=== PATIENT | male | born 1980 | race Caucasian/White ===

== ENCOUNTER 2016-12-14 22:28 | Emergency (ER) | payer OTHER ==
[2016-12-14 23:42] LABS: BASOPHIL % 0.1 % (0-2); PLATELET COUNT 279 x10^3mcL (130-400); RED CELL DISTRIBUTION WIDTH 14.5 % (11.5-14.5)
[2016-12-14 23:54] LABS: CALCIUM 10.3 mg/dL (8.5-10.1); CARBON DIOXIDE 23.1 mmol/L (21-32); CHLORIDE SERUM 102 mmol/L (98-107); CREATININE SERUM 1.3 mg/dL (0.7-1.3); GFR1 > 60 mL/min; GLUCOSE SERUM 142 mg/dL (74-106); POTASSIUM SERUM 4.1 mmol/L (3.5-5.1); SODIUM SERUM 141 mmol/L (136-145)
[2016-12-15 00:04] LABS: ALBUMIN 4.4 g/dL (3.4-5.0); ALKALINE PHOSPHATASE 113 U/L (46-116); ALT/SGPT 32 U/L (16-63); AST/SGOT 17 U/L (15-37); BILIRUBIN TOTAL 0.6 mg/dL (0.20-1.00); LIPASE 111 IU/L (73-393)
[2016-12-15 00:05] LABS: TOTAL PROTEIN, SERUM 8.3 g/dL (6.4-8.2)
[2016-12-15 02:07] VITALS: BP 179/93
== END 2016-12-15 02:07 | disposition home or self-care (01) ==
LOC: ED 22:28
PROVIDERS: Emergency Medicine
DX: R10.84 Generalized abdominal pain (principal); K44.9 Diaphragmatic hernia without obstruction or gangrene; K74.60 Unspecified cirrhosis of liver
CPT/HCPCS: J1170; J2405; J2765; J7030

== ENCOUNTER 2019-03-28 18:30 | Emergency (ER) | payer OTHER ==
[~2019-03-28] VITALS: Ht 177.8 cm; Wt 87.1 kg
[2019-03-28 18:50] VITALS: Ht 177.8 cm; Wt 87.1 kg
[2019-03-28 19:55] VITALS: BP 132/93
== END 2019-03-28 19:55 | disposition home or self-care (01) ==
LOC: ED 18:30
DX: K08.89 Other specified disorders of teeth and supporting structures (principal); F17.210 Nicotine dependence, cigarettes, uncomplicated; I10 Essential (primary) hypertension; Z71.6 Tobacco abuse counseling
CPT/HCPCS: 99406

== ENCOUNTER 2019-04-11 20:36 | Emergency (ER) | payer OTHER ==
[~2019-04-11] VITALS: Ht 177.8 cm; Wt 86.6 kg
[2019-04-11 21:20] VITALS: BP 120/93; Ht 177.8 cm; Wt 86.6 kg
== END 2019-04-11 22:55 | disposition home or self-care (01) ==
LOC: ED 20:36
DX: S02.5XXA Fracture of tooth (traumatic), initial encounter for closed fracture (principal); K02.9 Dental caries, unspecified; I10 Essential (primary) hypertension; X58.XXXA Exposure to other specified factors, initial encounter; Y93.89 Activity, other specified; Y92.89 Other specified places as the place of occurrence of the external cause; Y99.8 Other external cause status